=== PATIENT | male | born 1945 | race Hispanic/Latino ===

== ENCOUNTER 2019-09-26 09:07 | Inpatient (IN) | payer MEDICARE ==
[~2019-09-26] VITALS: Ht 172.7 cm; Wt 100.0 kg
[2019-09-26 09:38] LABS: BASOPHILS % (AUTO) 1.2 % (0.0-5.0); EOSINOPHILS % (AUTO) 3.6 % (0.0-8.0); HEMATOCRIT 42.9 % (42-54); LYMPHOCYTES % (AUTO) 22.9 % (21.0-51.0); MEAN CORPUSCULAR HEMOGLOBIN 31.7 pg (27.0-33.0); MEAN CORPUSCULAR HGB CONC 33.9 g/dL (32.0-36.0); MEAN CORPUSCULAR VOLUME 93.6 fL (79-99); MONOCYTES % (AUTO) 9.8 % (3.0-13.0); NEUTROPHILS % (AUTO) 62.5 % (40.0-77.0); PLATELET COUNT (AUTO) 168 K/uL (130-400); RED BLOOD CELL COUNT(AUTO) 4.58 MIL/uL (4.50-6.20); RED CELL DISTRIBUTION WIDTH 14.2 % (11.0-15.5); WHITE BLOOD COUNT (AUTO) 2.7 K/uL (4.8-10.8)
[2019-09-26 09:38] LABS: APPEARANCE,URINE Clear (CLEAR); BILIRUBIN,URINE Negative (NEGATIVE); COLOR,URINE Yellow (YELLOW); GLUCOSE, URINE (UA) Negative (NEGATIVE); KETONES,URINE 15 mg/dL (NEGATIVE); LEUKOCYTE ESTERASE ,URINE Negative (NEGATIVE); NITRATE,URINE Negative (NEGATIVE); OCCULT BLOOD,URINE Negative (NEGATIVE); PH,URINE 5.5 (5.0-8.0); PROTEIN,URINE Negative (NEGATIVE); UROBILINOGEN,URINE 0.2 mg/dL (0.2-1.0)
[2019-09-26 09:45] LABS: CREATININE 0.9 mg/dL (0.5-1.5); INR 1.05 (0.85-1.15); PARTIAL THROMBOPLASTIN TIME 26.5 SEC (26.3-35.5); POTASSIUM 4.3 mmol/L (3.5-5.1)
[2019-09-26 09:49] LABS: ALBUMIN 3.9 g/dL (3.5-5.0); BILIRUBIN,TOTAL 0.5 mg/dL (0.2-1.0); TOTAL PROTEIN, SERUM 7.7 g/dL (6.0-8.3)
[2019-09-26 09:57] LABS: B-TYPE NATRIURETIC PEPTIDE 15 pg/mL (0-100)
[2019-09-26] MEDS ORDERED: ONDANSETRON HCL 4 MG/2 ML VIAL ONE (10:00)
[2019-09-26] MEDS ORDERED: FAMOTIDINE/PF 20 MG/2 ML VIAL IV ONE (10:00)
[2019-09-26 10:53] LABS: BAND NEUTROPHILS % (MANUAL) 2 % (0-2); BASOPHILS % (MANUAL) 1 % (0-2); EOSINOPHILS % (MANUAL) 5 % (1-6); LYMPHOCYTES % (MANUAL) 18 % (22-44); MONOCYTES % (MANUAL) 15 % (2-9); PLATELET MORPHOLOGY COMMENT ADEQUATE; REACTIVE LYMPHOCYTES 2 % (0-0); SEGMENTED NEUTROPHILS % 57 % (40-70)
[2019-09-26] MEDS ORDERED: SODIUM CHLORIDE 0.9% 500ML 500 ML IV ONE (13:30)
[2019-09-26] MEDS ORDERED: LORAZEPAM 2 MG/ML 1 ML VIAL ONE (14:26)
[2019-09-26] MEDS: SODIUM CHLORIDE 0.9% 1000ML 1,000 ML IV SCH ×2 (16:02→22:57)
[2019-09-26] MEDS ORDERED: PHARMACY COMMUNICATION MISC PRN (16:15)
[2019-09-26] MEDS ORDERED: ACETAMINOPHEN 325 MG TAB PO PRN ×2 (16:15)
[2019-09-26] MEDS ORDERED: ONDANSETRON HCL 4 MG/2 ML VIAL IV PRN ×2 (16:15)
[2019-09-26] MEDS ORDERED: HYDRALAZINE HCL 20 MG/ML VIAL IV PRN (16:15)
[2019-09-26] MEDS ORDERED: CHLORDIAZEPOXIDE HCL 25 MG CAP PO PRN (16:15)
[2019-09-26] MEDS ORDERED: HYDRALAZINE HCL 20 MG/ML VIAL ONE (17:05)
[2019-09-26] MEDS ORDERED: SODIUM CHLORIDE 0.9% 1000ML 1,000 ML IV ONE (18:10)
[2019-09-26 18:31] VITALS: BP 149/66
[2019-09-26 19:00] VITALS: BP 151/74
--- NOTE | 2019-09-26 19:36 | NUR ---
PT UPDATE Pt admitted at 1840 on the floor, Pt AOX3, Pt admitted with acute alcohol hepatitis and ETOH, Pt able to transfer from bed to wheel chair, stable VS, Pt comfortable in bed, No c/o of pain at this time, Nursing will continue to monitor, care endorsed to primary nurse for the night.
[2019-09-26 19:40] LABS: ALCOHOL, BLOOD < 3 mg/dL (0-10); PHOSPHORUS 2.6 mg/dL (2.5-4.9)
[2019-09-26 21:35] LABS: AMPHET/METH SCREEN,URINE NEGATIVE (NEGATIVE); BARBITURATE SCREEN, URINE NEGATIVE (NEGATIVE); BENZODIAZEPINES SCREEN,URINE NEGATIVE (NEGATIVE); CANNABINOID SCREEN,URINE NEGATIVE (NEGATIVE); COCAINE SCREEN,URINE NEGATIVE (NEGATIVE); OPIATE SCREEN,URINE NEGATIVE (NEGATIVE); PHENCYCLIDINE SCREEN,URINE NEGATIVE (NEGATIVE)
[2019-09-26] MEDS: MAGNESIUM 2GM PREMIX 50ML 50 ML IV PRN (22:05)
[2019-09-26] MEDS: FAMOTIDINE/PF 20 MG/2 ML VIAL IV SCH (22:05)
[2019-09-26 23:00] VITALS: BP 158/79
[2019-09-26] MEDS ORDERED: TRAMADOL HCL 50 MG TABLET PO PRN (23:15)
[2019-09-27] MEDS ORDERED: PRAV80TA21 PO (02:59)
[2019-09-27] MEDS ORDERED: METO50TA18 PO (02:59)
[2019-09-27] MEDS ORDERED: RANI150T7 PO (02:59)
[2019-09-27] MEDS ORDERED: LOSA100T58 PO (02:59)
[2019-09-27] MEDS ORDERED: METF-526 PO (02:59)
[2019-09-27] MEDS ORDERED: CITA40TA14 PO (02:59)
[2019-09-27] MEDS ORDERED: FINA5TAB41 PO (02:59)
[2019-09-27 03:00] VITALS: BP 163/89
[2019-09-27] MEDS: SODIUM CHLORIDE 0.9% 1000ML 1,000 ML IV SCH (05:44)
[2019-09-27] MEDS: MAGNESIUM 2GM PREMIX 50ML 50 ML IV PRN (06:16)
[2019-09-27] MEDS: INSULIN HUMULIN R 100 UNIT/ML 3ML SQ SCH ×4 (06:17→22:11)
[2019-09-27 08:00] VITALS: BP 165/85
[2019-09-27] MEDS ORDERED: ENOXAPARIN SODIUM 40 MG/0.4 ML SYRINGE SQ SCH (09:00)
[2019-09-27] MEDS: MULTIVITAMIN TABLET PO SCH (09:29)
[2019-09-27] MEDS: FOLIC ACID 1 MG TABLET PO SCH (09:29)
[2019-09-27] MEDS: THIAMINE HCL 100 MG/ML 2ML VIAL IM SCH (09:29)
[2019-09-27] MEDS: FAMOTIDINE/PF 20 MG/2 ML VIAL IV SCH ×2 (09:30→22:15)
[2019-09-27 11:54] VITALS: BP 168/86
--- NOTE | 2019-09-27 13:21 | NUR ---
DC PLAN PER PATIENT STATES INDEPENDENCE WITH ADLS, LIVES WITH SPOUSE, HAS A CANE AND PROVIDER 2-3 HRS FRI-FRIDAY AND FEELS SAFE TO RETURN HOME. Addendum: 09/27/19 at 1323 by LISA MARQUEZ RN CM Amended: Links added.
--- NOTE | 2019-09-27 13:24 | NUR ---
BRENNA NOTE LOW INCOME SELF PAY PACKET GIVEN TO PATIENT, PATIENT VERBALIZED UNDERSTANDING OF INFORMATION. Addendum: 09/27/19 at 1549 by LISA MARQUEZ RN CM ENTERED IN ERRO
[2019-09-27 16:00] VITALS: BP 160/67
[2019-09-27 19:00] VITALS: BP 158/76
[2019-09-27 23:00] VITALS: BP 158/85
[2019-09-28 03:00] VITALS: BP 156/78
[2019-09-28 05:44] LABS: BASOPHILS % (AUTO) 0.7 % (0.0-5.0); EOSINOPHILS % (AUTO) 1.9 % (0.0-8.0); HEMATOCRIT 45.1 % (42-54); LYMPHOCYTES % (AUTO) 33.6 % (21.0-51.0); MEAN CORPUSCULAR HEMOGLOBIN 31.6 pg (27.0-33.0); MEAN CORPUSCULAR HGB CONC 33.6 g/dL (32.0-36.0); MEAN CORPUSCULAR VOLUME 93.8 fL (79-99); MONOCYTES % (AUTO) 12.1 % (3.0-13.0); NEUTROPHILS % (AUTO) 51.7 % (40.0-77.0); PLATELET COUNT (AUTO) 196 K/uL (130-400); RED BLOOD CELL COUNT(AUTO) 4.81 MIL/uL (4.50-6.20); RED CELL DISTRIBUTION WIDTH 14.5 % (11.0-15.5); WHITE BLOOD COUNT (AUTO) 4.5 K/uL (4.8-10.8)
[2019-09-28 05:56] LABS: POTASSIUM 3.5 mmol/L (3.5-5.1)
[2019-09-28] MEDS: INSULIN HUMULIN R 100 UNIT/ML 3ML SQ SCH (06:52)
--- NOTE | 2019-09-28 08:45 | NUR ---
PT SIGN AGAINST MEDICAL ADVISE. RISK DISCUSS . .
--- NOTE | 2019-09-28 08:46 | NUR ---
PIV TO HIS RT FOREARM WAS DC, NOTED NO REDNESS OR HEMATOMA SM PRESSURE DRSG APPLICATION ON
[2019-09-28] MEDS: THIAMINE HCL 100 MG/ML 2ML VIAL IM SCH (08:54)
[2019-09-28] MEDS: FOLIC ACID 1 MG TABLET PO SCH (08:55)
[2019-09-28] MEDS: MULTIVITAMIN TABLET PO SCH (08:55)
== END 2019-09-28 08:50 | disposition left against medical advice (07) | DRG 433 ==
LOC: EDH 09:07 → OBSVTOIN 16:02 → 3DH 16:02
PROVIDERS: ADMIT Internal Medicine; ATTEND Internal Medicine
DX: K70.10 Alcoholic hepatitis without ascites (principal); E87.2 Acidosis; F10.20 Alcohol dependence, uncomplicated; E11.649 Type 2 diabetes mellitus with hypoglycemia without coma; E78.00 Pure hypercholesterolemia, unspecified; I10 Essential (primary) hypertension; K76.0 Fatty (change of) liver, not elsewhere classified; K21.9 Gastro-esophageal reflux disease without esophagitis; Z87.891 Personal history of nicotine dependence
CPT/HCPCS: 36415; 71045; 76705; 80048; 80053; 80305; 81003; 82550; 82948; 83605; 83690; 83735; 83880; 84100; 84484; 85025; 85610; 85730; 87040; 87804; 93005; G0378; G0480; J0360; J1650; J1815; J2060; J2405; J3411; J3475; J3490; J7030; J7040

== ENCOUNTER 2024-02-05 07:13 | Emergency (ER) | payer MEDICARE, OTHER ==
[~2024-02-05] VITALS: Ht 172.7 cm; Wt 104.3 kg
[~2024-02-05 07:13] MED LIST: CITA40TA14 PO; FINA5TAB41 PO; LOSA100T59 PO; METF-526 PO; METO50TA18 PO; PRAV80TA43 PO; RANI150T7 PO
[2024-02-05] MEDS: THIAMINE HCL 100 MG/ML 2ML VIAL IVP ONE (08:10)
[2024-02-05] MEDS: 0.9%NACL 1000ML 1,368 ML IV ONE (08:10)
[2024-02-05 08:15] LABS: BASOPHILS # (AUTO) 0.03 K/uL (0.00-0.20); BASOPHILS % (AUTO) 0.4 % (0.0-5.0); EOSINOPHILS # (AUTO) 0.06 K/uL (0.00-0.70); EOSINOPHILS % (AUTO) 0.9 % (0.0-8.0); IMMATURE GRANULOCYTE ABSOLUTE 0.02 K/uL (0-1); LYMPHOCYTES # (AUTO) 0.8 K/uL (1.0-4.8); LYMPHOCYTES % (AUTO) 11.6 % (21.0-51.0); MEAN CORPUSCULAR HEMOGLOBIN 30.6 pg (27.0-33.0); MEAN CORPUSCULAR VOLUME 90.1 fL (79-99); MONOCYTES # (AUTO) 0.5 K/uL (0.1-1.0); MONOCYTES % (AUTO) 6.8 % (3.0-13.0); NEUTROPHILS # (AUTO) 5.4 K/uL (1.8-7.7); PLATELET COUNT (AUTO) 191 K/uL (130-400); RED BLOOD CELL COUNT(AUTO) 4.44 MIL/uL (4.50-6.20); RED CELL DISTRIBUTION WIDTH 13.2 % (11.0-15.5); WHITE BLOOD COUNT (AUTO) 6.8 K/uL (4.8-10.8)
[2024-02-05 08:23] LABS: CREATININE 0.9 mg/dL (0.5-1.5); POTASSIUM 3.9 mmol/L (3.5-5.1)
[2024-02-05 08:27] LABS: ALBUMIN 3.4 g/dL (3.5-5.0); BILIRUBIN,TOTAL 0.6 mg/dL (0.2-1.0); TOTAL PROTEIN, SERUM 7.7 g/dL (6.0-8.3)
[2024-02-05 09:00] LABS: B-TYPE NATRIURETIC PEPTIDE 21 pg/mL (0-100)
[2024-02-05] MEDS: INSULIN HUMULIN R 100 UNIT/ML 3ML IV ONE (09:48)
[2024-02-05 10:10] VITALS: BP 151/94; PULSE 114; RESP 18; O2SAT 96
[2024-02-05] MEDS: IBUPROFEN 200 MG TAB PO ONE (10:35)
== END 2024-02-05 13:17 | disposition home or self-care (01) ==
LOC: EDH 07:13
DX: E11.65 Type 2 diabetes mellitus with hyperglycemia (principal); R53.1 Weakness; F10.929 Alcohol use, unspecified with intoxication, unspecified; I10 Essential (primary) hypertension; Z79.84 Long term (current) use of oral hypoglycemic drugs; Z79.899 Other long term (current) drug therapy; Z86.73 Personal history of transient ischemic attack (TIA), and cerebral infarction without residual deficits
CPT/HCPCS: 99285; 96374; 96361; 96375; 84484; 80053; 83880; 82140; 83690; 85025; 82948; 36415; 74021; 93005; J1815; J7030; J3411